=== PATIENT | male | born 1970 | race Caucasian/White ===

== ENCOUNTER 2017-06-04 15:17 | Emergency (ER) | payer MEDICAID ==
[~2017-06-04] VITALS: Ht 177.8 cm; Wt 136.1 kg
[2017-06-04 15:25] VITALS: Ht 177.8 cm; Wt 136.1 kg
[2017-06-04 19:49] VITALS: BP 142/91
== END 2017-06-04 19:49 | disposition home or self-care (01) ==
LOC: ED 15:17
DX: S13.4XXA Sprain of ligaments of cervical spine, initial encounter (principal); S63.601A Unspecified sprain of right thumb, initial encounter; S20.212A Contusion of left front wall of thorax, initial encounter; S30.811A Abrasion of abdominal wall, initial encounter; I10 Essential (primary) hypertension; Z88.1 Allergy status to other antibiotic agents; V23.4XXA Motorcycle driver injured in collision with car, pick-up truck or van in traffic accident, initial encounter; Y93.55 Activity, bike riding; Y99.8 Other external cause status; Y92.89 Other specified places as the place of occurrence of the external cause
CPT/HCPCS: 90715; J2270; Q0162